=== PATIENT | male | born 1995 | race American Indian/Alaskan Native ===

== ENCOUNTER 2022-07-18 20:44 | Emergency (ER) | payer MEDICAID, OTHER ==
[2022-07-18] MEDS ORDERED: Sodium Chloride 0.9% 10 ML Syringe FLUSH PRN (20:54)
[2022-07-18 21:13] VITALS: BP 127/84; PULSE 80
== END 2022-07-18 21:07 | disposition left against medical advice (07) ==
LOC: DL.ED 20:44
DX: R07.89 Other chest pain (principal); R20.0 Anesthesia of skin
CPT/HCPCS: 99285

== ENCOUNTER 2022-08-02 20:43 | Emergency (ER) | payer OTHER ==
[2022-08-02] MEDS ORDERED: Acetaminophen 500 MG Tab PO ONE (22:46)
[2022-08-02 22:58] VITALS: BP 150/89; PULSE 78
== END 2022-08-02 23:00 | disposition home or self-care (01) ==
LOC: DL.ED 20:43
DX: S82.101A Unspecified fracture of upper end of right tibia, initial encounter for closed fracture (principal); F17.210 Nicotine dependence, cigarettes, uncomplicated; W20.8XXA Other cause of strike by thrown, projected or falling object, initial encounter
CPT/HCPCS: 73562-RT; 99283; A9270-GY

== ENCOUNTER 2022-08-28 15:00 | Emergency (ER) | payer MEDICAID | END 2022-08-28 16:01 | disposition left against medical advice (07) | LOC: DL.ED 15:00 | DX: Z53.21 Procedure and treatment not carried out due to patient leaving prior to being seen by health care provider (principal) ==

== ENCOUNTER 2024-01-08 15:17 | Emergency (ER) | payer MEDICAID ==
[2024-01-08 15:45] LABS: BASOPHILS PERCENT AUTO 0.5 % (0.0-1.0); EOSINOPHILS PERCENT AUTO 0.2 % (1.0-3.0); HEMATOCRIT 41.4 % (40.0-54.0); HEMOGLOBIN 14.1 g/dL (14.0-18.0); MEAN CORPUSCULAR HEMOGLOBIN 34.5 pg (27.0-34.0); MEAN CORPUSCULAR HGB CONC 34.1 g/dL (33.0-35.0); MEAN CORPUSCULAR VOLUME 101.2 fL (80-100); MONOCYTES PERCENT AUTO 8.8 % (2-8); NEUTROPHILS PERCENT AUTO 76.5 % (42.2-75.2); PLATELET COUNT,PLT 56 10^3/uL (150-450); RED BLOOD CELL COUNT 4.09 10^6/uL (4.6-6.2); WHITE BLOOD CELL COUNT,WBC 5.6 10^3/uL (5.0-10.0)
[2024-01-08 16:00] LABS: PROTHROMBIN TIME 10.1 SEC (9.0-12.0)
[2024-01-08 16:07] LABS: A/G RATIO 1.2; ALANINE AMINOTRANSFERASE,ALT 140 U/L (16-63); ALBUMIN 4.5 g/dL (3.4-5.0); ALKALINE PHOSPHATASE 100 U/L (46-116); ANION GAP 24.6 mEq/L (7-13); ASPARTATE AMNIOTRANSFERASE,AST 215 U/L (15-37); BLOOD UREA NITROGEN,BUN 7 mg/dL (7-18); BUN/CREATININE RATIO 6.2 (No establ ref range); CALCIUM 9.7 mg/dL (8.5-10.1); CARBON DIOXIDE,CO2 20 mmol/L (21-32); CHLORIDE,CL 92 mmol/L (98-107); CREATININE 1.12 mg/dL (0.70-1.30); GLUCOSE RANDOM 169 mg/dL (70-99); MAGNESIUM 2.3 mg/dL (1.8-2.4); POTASSIUM,K 3.6 mmol/L (3.5-5.1); PROTEIN TOTAL,TP 8.2 g/dL (6.4-8.2); SODIUM,NA 133 mmol/L (136-145)
[2024-01-08 16:09] LABS: ESTIMATED GFR 92 mL/min (>=60); ETHANOL BLOOD MEDICAL < 3 mg/dL (0)
[2024-01-08 17:13] LABS: APPEARANCE,URINE SLIGHTLY CLOUDY (CLEAR); BILIRUBIN,URINE SMALL (NEGATIVE); COLOR,URINE YELLOW (YELLOW); GLUCOSE,URINE NEGATIVE (NEGATIVE); KETONES,URINE >=160 (NEGATIVE); LEUKOCYTE ESTERASE,URINE NEGATIVE (NEGATIVE); NITRITE,URINE NEGATIVE (NEGATIVE); OCCULT BLOOD,URINE TRACE-INTACT (NEGATIVE); PROTEIN,URINE 100 (NEGATIVE)
[2024-01-08 17:16] LABS: AMPHETAMINES,URINE NEGATIVE (NEGATIVE); BARBITURATES,URINE NEGATIVE (NEGATIVE); BENZODIAZEPINE,URINE NEGATIVE (NEGATIVE); MDMA (ECSTASY), URINE NEGATIVE (NEGATIVE); METHADONE,URINE NEGATIVE (NEGATIVE); METHAMPHETAMINES,URINE NEGATIVE (NEGATIVE); OPIATES,URINE NEGATIVE (NEGATIVE); OXYCODONE,URINE NEGATIVE (NEGATIVE); PHENCYCLIDINE,URINE NEGATIVE (NEGATIVE); TCA,URINE NEGATIVE (NEGATIVE)
[2024-01-08 17:27] LABS: BACTERIA,URINE MODERATE /HPF (0-FEW/HPF); EPITHELIAL CELLS,URINE FEW /HPF (NOT SEEN); MUCUS,URINE MODERATE /LPF (NOT SEEN); WBC,URINE 0-5 /HPF (0-5/HPF)
[2024-01-08 17:33] VITALS: BP 134/90; PULSE 81
== END 2024-01-08 17:20 | disposition home or self-care (01) ==
LOC: DL.ED 15:17
DX: R56.9 Unspecified convulsions (principal); D69.6 Thrombocytopenia, unspecified; E87.1 Hypo-osmolality and hyponatremia; R94.5 Abnormal results of liver function studies; F17.200 Nicotine dependence, unspecified, uncomplicated
CPT/HCPCS: 36415; 70450; 71045; 76705; 80053; 80305-QW; 80307; 81001; 83735; 84484; 85025; 85610; 93005; 99285

== ENCOUNTER 2024-01-28 21:41 | Emergency (ER) | payer MEDICAID ==
[2024-01-28 21:53] VITALS: BP 139/97; PULSE 80
[2024-01-28] MEDS: Lidocaine 1% 5 ML VIAL INJECT ONE (22:20)
[2024-01-28] MEDS: Doxycycline Monohydrate 100 MG Cap PO ONE (22:51)
[2024-01-28] MEDS: Cefuroxime 250 MG Tab PO ONE (22:51)
[2024-01-28] MEDS: Bacitracin Oint 1 GM U/D Packet TOP ONE (22:52)
== END 2024-01-28 22:54 | disposition home or self-care (01) ==
LOC: DL.ED 21:41
DX: T23.112A Burn of first degree of left thumb (nail), initial encounter (principal); L03.012 Cellulitis of left finger; X15.3XXA Contact with hot saucepan or skillet, initial encounter
CPT/HCPCS: 26010; 99282; A9270; J3490

== ENCOUNTER 2024-09-23 09:02 | Emergency (ER) | payer OTHER, MEDICAID | END 2024-09-23 10:39 | disposition home or self-care (01) | LOC: DL.ED 09:02 | DX: M25.512 Pain in left shoulder (principal); V87.7XXA Person injured in collision between other specified motor vehicles (traffic), initial encounter; Y92.410 Unspecified street and highway as the place of occurrence of the external cause | CPT/HCPCS: 70450; 71045; 72125; 73030-LT; 99282; 99285 ==

== ENCOUNTER 2025-01-27 20:08 | Emergency (ER) | payer MEDICAID ==
[2025-01-27] MEDS: LORazepam 2 MG/ML SDV ONE (20:13)
[2025-01-27 20:33] LABS: BASOPHILS PERCENT AUTO 0.3 % (0.0-1.0); EOSINOPHILS PERCENT AUTO 0.3 % (1.0-3.0); LYMPHOCYTES PERCENT AUTO 36.3 % (20.5-50.1); MONOCYTES PERCENT AUTO 9.2 % (2-8); NEUTROPHILS PERCENT AUTO 53.9 % (42.2-75.2); PLATELET COUNT,PLT 67 10^3/uL (150-450); RED BLOOD CELL COUNT 3.75 10^6/uL (4.6-6.2); WHITE BLOOD CELL COUNT,WBC 6.4 10^3/uL (5.0-10.0)
[2025-01-27 20:36] LABS: O2 DELIVERY DEVICE RESUSCITATION BAG
[2025-01-27 20:37] LABS: O2 SATURATION VENOUS 88.1 % (60-80); PCO2 VENOUS 54 mmHg (41-51); PH,VENOUS 7.03 (7.31-7.41); PO2 VENOUS 84 mmHg (35-42)
[2025-01-27 20:38] LABS: BASE EXCESS VENOUS -17.4 mmol/l ((-2)-(+3)); BICARBONATE,VENOUS 14 mmol/l (19-25)
[2025-01-27 20:45] LABS: INR 1.0 (0.9-1.2); PTT,PARTIAL THROMBOPLSTIN TIME 23.4 SEC (22.0-34.0)
[2025-01-27 20:46] LABS: A/G RATIO 1.1; ALANINE AMINOTRANSFERASE,ALT 424 U/L (16-63); ASPARTATE AMNIOTRANSFERASE,AST 667 U/L (15-37); BILIRUBIN TOTAL 2.4 mg/dL (0.2-1.0); BLOOD UREA NITROGEN,BUN 7 mg/dL (7-18); CARBON DIOXIDE,CO2 15 mmol/L (21-32); CHLORIDE,CL 89 mmol/L (98-107); CREATININE 1.61 mg/dL (0.70-1.30); GLUCOSE RANDOM 206 mg/dL (70-99); POTASSIUM,K 3.9 mmol/L (3.5-5.1); PROTEIN TOTAL,TP 8.1 g/dL (6.4-8.2); SODIUM,NA 130 mmol/L (136-145)
[2025-01-27 20:57] LABS: ESTIMATED GFR 59 mL/min (>=60); ETHANOL BLOOD MEDICAL < 3 mg/dL (0)
[2025-01-27] MEDS: Thiamine 100 MG in Sodium Chloride 0.9% 1,000 ML IV ONE (20:58)
[2025-01-27] MEDS: Midazolam 5 MG/ML 10 ML MDV ONE (20:58)
[2025-01-27 21:48] LABS: BAND PERCENT MAN 2 %; LYMPHOCYTES PERCENT MAN 36 % (20-50); MONOCYTES PERCENT MAN 8 % (2-8); SEG NEUTROPHILS PERCENT MAN 54 % (42-75)
[2025-01-27 22:25] VITALS: BP 149/93; PULSE 136
[2025-01-27 22:27] LABS: AMPHETAMINES,URINE NEGATIVE (NEGATIVE); BARBITURATES,URINE NEGATIVE (NEGATIVE); MDMA (ECSTASY), URINE NEGATIVE (NEGATIVE); METHAMPHETAMINES,URINE POSITIVE (NEGATIVE); OPIATES,URINE NEGATIVE (NEGATIVE); OXYCODONE,URINE NEGATIVE (NEGATIVE); PHENCYCLIDINE,URINE NEGATIVE (NEGATIVE); TCA,URINE NEGATIVE (NEGATIVE)
== END 2025-01-27 20:58 ==
LOC: EDBD → MERGE 20:16 → DL.ED 20:16
DX: G40.901 Epilepsy, unspecified, not intractable, with status epilepticus (principal)
CPT/HCPCS: 31500; 36415; 51702; 71045; 80053; 80305; 80307; 82803; 83735; 85025; 85610; 85730; 96374; 96375; 99285; J1953; J2060; J2250; J3411